=== PATIENT | male | born 1950 | race Two or more races ===

== ENCOUNTER 2017-08-11 23:43 | Emergency (ER) | payer OTHER ==
[~2017-08-11] VITALS: Ht 172.7 cm; Wt 77.1 kg
[~2017-08-11 23:43] MED LIST: ASPIR 8181 MG ORAL; HYDROCORTISONE TP; LEVOTHYROXINE25 MCG ORAL; LISINOPRIL5 MG ORAL; NEXIUM2.5 MG ORAL
--- NOTE | 2017-08-12 00:10 | Emergency Room Report ---
History of Present Illness General Chief Complaint: Alcohol Intoxication Source: Family Member, EMS Present Illness HPI 66-year-old male, unknown past medical history, presenting with possible alcohol intoxication. Family told EMS that patient drank a lot of alcohol, no intoxicated, however states that patient does not usually drink alcohol. Unknown any other history. Patient is currently not responsive, likely intoxicated Family at bedside stated that he drank alcohol today, he normally does not drink any alcohol, and was sleeping for the rest of the day Allergies: Coded Allergies: No Known Allergies (Unverified , 08/11/17) Patient History Past Medical History: see triage record Past Surgical History: none Pertinent Family History: none Reviewed Nursing Documentation: PMH: Agreed, PSxH: Agreed Nursing Documentation-PMH Past Medical History: No History, Except For Hx Hypertension: Yes Review of Systems All Other Systems: limited Physical Exam Vital Signs Date Time Temp Pulse Resp B/P (MAP) Pulse Ox O2 Delivery O2 Flow Rate FiO2 08/11/17 23:34 97.8 80 18 146/91 97 Room Air 97.9 Sp02 EP Interpretation: reviewed, normal General Appearance: other - Middle aged male, unresponsive/possibly intoxicated , moving spontaneously, but not talking not answering questions Head: normocephalic, atraumatic Eyes: bilateral eye normal inspection, bilateral eye PERRL, bilateral eye EOMI ENT: normal ENT inspection, normal pharynx, normal voice, moist mucus membranes Neck: normal inspection, full range of motion, supple Respiratory: normal inspection, lungs clear, normal breath sounds, no respiratory distress, no retraction, no wheezing, speaking full sentences, chest symmetrical Cardiovascular #1: normal inspection, regular rate, rhythm, no edema, normal capillary refill Cardiovascular #2: 2+ radial (R), 2+ radial (L) Gastrointestinal: normal inspection, non tender, soft, non-distended, no guarding Genitourinary: no CVA tenderness Musculoskeletal: normal inspection, back normal, normal range of motion, non- tender Neurologic: other - intox/not responsive. moving ext spont Psychiatric: other - intoxi Skin: normal inspection, normal color, no rash, warm/dry, well hydrated, normal turgor Medical Decision Making Diagnostic Impression: Primary Impression: Acute alcoholic intoxication Additional Impression: Pituitary mass ER Course 66-year-old male, possible alcohol intoxication as per family DDX: Likely alcohol intoxication Versus other ingestion Intracranial bleed however there is no history of trauma Plan: BGM, Obtain labs, alcohol level, IVF, pending sobriety CT head ER course: Patient has remained stable during ED stay. Received fluids, Now clinically sober, ambulatory. Disposition: Patient is to be discharged to home. incidental finding of 2cm soft tissue density in sella - told to fu with pmd for outpatient MRI Patient is instructed to follow up with their primary care doctor within 5 days. Please note that this Emergency Department Report was dictated using VoIP Logic[employer] technician technology software, occasionally this can lead to erroneous entry secondary to interpretation by the dictation equipment EKG Diagnostic Results EP Interpretation: Yes Rate: Tachycardic Rhythm: NSR ST Segments: RBBB ASA given to patient: No Laboratory Tests Test 08/12/17 00:31 08/12/17 03:18 White Blood Count 7.3 K/UL (4.8-10.8) Red Blood Count 5.05 M/UL (4.70-6.10) Hemoglobin 16.5 G/DL (14.2-18.0) Hematocrit 45.6 % (42.0-52.0) Mean Corpuscular Volume 90 FL (80-99) Mean Corpuscular Hemoglobin 32.7 PG (27.0-31.0) H Mean Corpuscular Hemoglobin Concent 36.2 G/DL (32.0-36.0) H Red Cell Distribution Width 12.0 % (11.6-14.8) Platelet Count 219 K/UL (150-450) Mean Platelet Volume 6.1 FL (6.5-10.1) L Neutrophils (%) (Auto) 34.4 % (45.0-75.0) L Lymphocytes (%) (Auto) 46.8 % (20.0-45.0) H Monocytes (%) (Auto) 8.4 % (1.0-10.0) Eosinophils (%) (Auto) 8.9 % (0.0-3.0) H Basophils (%) (Auto) 1.5 % (0.0-2.0) Sodium Level 139 MMOL/L (136-145) Potassium Level 3.1 MMOL/L (3.5-5.1) L Chloride Level 102 MMOL/L (98-107) Carbon Dioxide Level 29 MMOL/L (21-32) Anion Gap 8 mmol/L (5-15) Blood Urea Nitrogen 10 mg/dL (7-18) Creatinine 1.0 MG/DL (0.55-1.30) Estimate Glomerular Filtration Rate > 60 mL/min (>60) Glucose Level 99 MG/DL (74-106) Calcium Level 8.1 MG/DL (8.5-10.1) L Total Bilirubin 0.2 MG/DL (0.2-1.0) Aspartate Amino Transferase (AST) 24 U/L (15-37) Alanine Aminotransferase (ALT) 45 U/L (12-78) Alkaline Phosphatase 110 U/L (46-116) Total Creatine Kinase 73 U/L (26-308) Troponin I 0.015 ng/mL (0.000-0.056) Total Protein 7.7 G/DL (6.4-8.2) Albumin 3.8 G/DL (3.4-5.0) Globulin 3.9 g/dL Albumin/Globulin Ratio 1.0 (1.0-2.7) Salicylates Level 0.4 ug/mL (2.8-20) L Acetaminophen Level < 2 MCG/ML (10-30) L Serum Alcohol 421 mg/dL Urine Color Pale yellow Urine Appearance Clear Urine pH 5 (4.5-8.0) Urine Specific [place] 1.020 (1.005-1.035) Urine Protein Negative (NEGATIVE) Urine Glucose (UA) Negative (NEGATIVE) Urine Ketones Negative (NEGATIVE) Urine Occult Blood Negative (NEGATIVE) Urine Nitrite Negative (NEGATIVE) Urine Bilirubin Negative (NEGATIVE) Urine Urobilinogen Normal MG/DL (0.0-1.0) Urine Leukocyte Esterase Negative (NEGATIVE) Urine Opiates Screen Negative (NEGATIVE) Urine Barbiturates Screen Negative (NEGATIVE) Phencyclidine (PCP) Screen Negative (NEGATIVE) Urine Amphetamines Screen Negative (NEGATIVE) Urine Benzodiazepines Screen Negative (NEGATIVE) Urine Cocaine Screen Negative (NEGATIVE) Urine Marijuana (THC) Screen Negative (NEGATIVE) CT/MRI/US Diagnostic Results CT/MRI/US Diagnostic Results : Imaging Test Ordered: CT HEAD Impression IMPRESSION: 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 Apparent gyriform hyperdensity along the posterior margin of the left temporal encephalomalacia is compatible with either dystrophic calcification/laminar necrosis or artifact given appearance on coronal imaging. No intracranial hemorrhage or CT evidence of acute territorial infarction. No ventriculomegaly. INCIDENTAL FINDINGS: Volume loss and chronic microvascular ischemic change. Expanded sella with 2 cm soft tissue density in the sella which may represent residual/recurrent pituitary mass. Contrast-enhanced MRI sella/pituitary could further evaluate if clinically indicated (nonemergent/outpatient as appropriate) . Prior left pterional craniotomy. Complete opacification of the right maxillary sinus without mastoid effusion. Last Vital Signs Date Time Temp Pulse Resp B/P (MAP) Pulse Ox O2 Delivery O2 Flow Rate FiO2 08/11/17 23:34 97.8 80 18 146/91 97 Room Air 97.9 Disposition: HOME, SELF-CARE Condition: Improved Mary Omalley M.D. Aug 12, 2017 00:10
[2017-08-12 00:53] LABS: BASOPHILS % (AUTO) 1.5 % (0.0-2.0); EOSINOPHILS % (AUTO) 8.9 % (0.0-3.0); HEMATOCRIT 45.6 % (42.0-52.0); HEMOGLOBIN 16.5 G/DL (14.2-18.0); LYMPHOCYTES % (AUTO) 46.8 % (20.0-45.0); MEAN CORPUSCULAR VOLUME 90 FL (80-99); MONOCYTES % (AUTO) 8.4 % (1.0-10.0); NEUTROPHILS % (AUTO) 34.4 % (45.0-75.0); PLATELET COUNT 219 K/UL (150-450); RED BLOOD COUNT 5.05 M/UL (4.70-6.10); WHITE BLOOD COUNT 7.3 K/UL (4.8-10.8)
[2017-08-12 01:07] LABS: ANION GAP 8 mmol/L (5-15); BLOOD UREA NITROGEN 10 mg/dL (7-18); CALCIUM 8.1 MG/DL (8.5-10.1); CARBON DIOXIDE 29 MMOL/L (21-32); CHLORIDE 102 MMOL/L (98-107); POTASSIUM 3.1 MMOL/L (3.5-5.1); SODIUM 139 MMOL/L (136-145)
[2017-08-12 01:18] LABS: ALANINE AMINOTRANSFERASE 45 U/L (12-78); ALBUMIN 3.8 G/DL (3.4-5.0); ALKALINE PHOSPHATASE 110 U/L (46-116); ASPARTATE AMINO TRANSFERASE 24 U/L (15-37); BILIRUBIN,TOTAL 0.2 MG/DL (0.2-1.0); CREATINE KINASE 73 U/L (26-308)
[2017-08-12 03:26] VITALS: BP 138/84
[2017-08-12 04:02] LABS: APPEARANCE,URINE CLEAR; BILIRUBIN, URINE NEGATIVE (NEGATIVE); COLOR,URINE PALE YELLOW; GLUCOSE, URINE (UA) NEGATIVE (NEGATIVE); KETONES,URINE NEGATIVE (NEGATIVE); LEUKOCYTE ESTERASE ,URINE NEGATIVE (NEGATIVE); NITRITE,URINE NEGATIVE (NEGATIVE); PH,URINE 5 (4.5-8.0); PROTEIN,URINE NEGATIVE (NEGATIVE); UROBILINOGEN,URINE NORMAL MG/DL (0.0-1.0)
[2017-08-12 06:15] VITALS: BP 138/84
--- NOTE | 2017-08-12 08:15 | Diagnostic Imaging Report ---
Indication: Altered mental status Technique: Continuous helical CT scanning of the head was performed without intravenous contrast material. Axial and coronal 5 mm sections were generated. Dose: Total Dose Length Product - DLP [address] Dose Index - CTDIvol(s) 70.38 mGy. Automated exposure control was utilized for dose reduction. Comparison: None Findings: The ventricles are normal. The sulci are mildly prominent. There has been a previous left temporal craniotomy. Enlargement of the sella turcica is noted. A soft tissue mass is noted within the pituitary measuring approximately 2.3 cm in lateral dimension and 2 cm in AP dimension.. There is erosion of the left side of the dorsum sella and the left side of the sellar floor. Encephalomalacia is noted in the tip of the left temporal lobe. Gyriform high density immediately posterior to the encephalomalacia is likely artifactual. There is opacification of the right maxillary sinus. No other abnormal high or low density areas are noted within the brain. Impression: Mild atrophy. Previous left temporal craniotomy with encephalomalacia in the left temporal lobe. Abnormal appearance of the sella turcica and soft tissue mass in the left side of the sella. This is consistent with a massive pituitary origin and could be recurrent or residual mass. Opacified right maxillary sinus may represent mucous retention cyst or polyp or merely inflammatory change. The above report is concordant with preliminary reading by [facility] with minor difference. The CT scanner at [facility] is accredited by the [employer] and the scans are performed using protocols designed to limit radiation exposure to as low as reasonably achievable to attain images of sufficient resolution adequate for diagnostic evaluation.
== END 2017-08-12 06:15 | disposition home or self-care (01) ==
LOC: EDBD 23:43 → EMR 08-12 01:01
DX: F10.129 Alcohol abuse with intoxication, unspecified (principal); E23.6 Other disorders of pituitary gland; R41.82 Altered mental status, unspecified
CPT/HCPCS: 36415; 70450; 80053; 80307; 81003; 82550; 84484; 85025; 93005; 96374; 99284; G0480; 80329